=== PATIENT | female | born 1990 | race Caucasian/White ===

== ENCOUNTER 2016-11-21 19:58 | Emergency (ER) | payer MEDICAID, OTHER ==
[~2016-11-21] VITALS: Ht 162.6 cm; Wt 74.8 kg
[2016-11-21] MEDS ORDERED: IBUPROFEN 200 MG TABLET PO STA (20:06)
[2016-11-21] MEDS ORDERED: ONDANSETRON 2MG/ML, 2ML ONE (20:12)
[2016-11-21] MEDS ORDERED: IBUPROFEN 200 MG TABLET ONE (20:12)
[2016-11-21] MEDS ORDERED: ACETAMINOPHEN 500 MG TABLET ONE (20:12)
[2016-11-21 20:20] LABS: HEMATOCRIT 42.1 % (34.6-47.8); HEMOGLOBIN 14.1 g/dL (11.7-16.4)
[2016-11-21] MEDS ORDERED: SODIUM CHLORIDE 0.9% 1,000ML IVBOLUS ONE ×2 (20:30→21:30)
[2016-11-21] MEDS ORDERED: SODIUM CHLORIDE FLUSH 10ML SYR IVF ONE (20:30)
[2016-11-21] MEDS ORDERED: ONDANSETRON 2MG/ML, 2ML IVPush ONE (20:30)
[2016-11-21] MEDS ORDERED: ACETAMINOPHEN 500 MG TABLET PO ONE (20:30)
[2016-11-21 20:32] LABS: ASPARTATE AMINO TRANSFERASE 18 U/L (15-37); BLOOD UREA NITROGEN 7 mg/dL (7-18)
[2016-11-21] MEDS ORDERED: CEFTRIAXONE PMX 1GM/50ML 50 ML ONE (21:27)
[2016-11-21] MEDS ORDERED: CEFTRIAXONE PMX 1GM/50ML 50 ML IV ONE (21:30)
[2016-11-21 22:42] VITALS: BP 126/84
== END 2016-11-21 22:47 | disposition home or self-care (01) ==
LOC: ED 22:30
DX: N30.90 Cystitis, unspecified without hematuria (principal); J45.909 Unspecified asthma, uncomplicated
CPT/HCPCS: 36415; 80053; 81001; 84703; 85025; 87077; 87086; 87186; 96361; 96365; 96375; 99284; J0696; J2405; J7030

== ENCOUNTER 2016-11-22 19:30 | Emergency (ER) | payer OTHER, MEDICAID ==
[~2016-11-22] VITALS: Ht 162.6 cm; Wt 57.0 kg
[2016-11-22 20:52] LABS: HEMATOCRIT 40.4 % (34.6-47.8); HEMOGLOBIN 13.6 g/dL (11.7-16.4); WHITE BLOOD COUNT 9.6 x10^3/uL (3.4-10)
[2016-11-22 21:00] LABS: BLOOD UREA NITROGEN 6 mg/dL (7-18)
[2016-11-22 21:54] VITALS: BP 106/67
[2016-11-22] MEDS ORDERED: CEFTRIAXONE 1,000 MG ONE (22:20)
[2016-11-22] MEDS ORDERED: CEFTRIAXONE 1,000 MG IM ONE (22:30)
== END 2016-11-22 22:44 | disposition home or self-care (01) ==
LOC: ED 22:39
DX: J45.909 Unspecified asthma, uncomplicated (principal); N10 Acute pyelonephritis
CPT/HCPCS: 36415; 80048; 82040; 83605; 84145; 85025; 87040; 96372; 99284; J0696

== ENCOUNTER 2019-01-18 14:05 | Outpatient (CLI) | payer OTHER ==
[~2019-01-18] VITALS: Ht 160 cm; Wt 78.2 kg
[2019-01-18 14:17] VITALS: BP 119/59
== END 2019-01-18 16:00 | disposition home or self-care (01) ==
LOC: LDOP 14:05
PROVIDERS: ATTEND Student in an Organized Health Care Education/Training Program
DX: O26.893 Other specified pregnancy related conditions, third trimester (principal); R10.9 Unspecified abdominal pain; Z3A.32 32 weeks gestation of pregnancy
CPT/HCPCS: 59025; 76817; 99211; G0463